=== PATIENT | female | born 1965 | race Caucasian/White ===

== ENCOUNTER 2019-08-25 19:13 | Inpatient (IN) | payer OTHER ==
[~2019-08-25] VITALS: Ht 160 cm; Wt 62.6 kg
[2019-08-25 19:22] VITALS: Ht 160 cm; Wt 62.6 kg
--- NOTE | 2019-08-25 19:30 | NUR ---
PT PRESENTS TO ED WITH C/C GENERALIZED CHEST PAIN WITH ASSOCIATED SOB AND SHARP UPPER BACK PAIN X2 DAYS. PT IS AAOX4. RR TACHYPNIC AT 25 RPM. PT APPEARS UNCOMFORTABLE AND IS DIAPHORETIC, SHIRT SOAKED IN SWEAT. AT BEDSIDE TO TRANSLATE. PER PT IS A DIALYSIS PATIENT AND GOES M/W/F WITH PAST MEDICAL HX OF DIABETES AND "RENAL" UNABLE TO NAME. PAIN DEVELOLPED 2 DAYS AGO AND WORSENED TODAY. PT IS UNABLE TO NAME MEDICATIONS TAKEN AT HOME. PT CONNECTED TO MONITOR. DR REGALADO AT BEDSIDE FOR MSE.
--- NOTE | 2019-08-25 19:31 | NUR ---
EKG COMPLETE AT BEDSIDE.
--- NOTE | 2019-08-25 19:33 | NUR ---
PT ESCORTED TO RESTROOM. STS "I HAVE TO GO DIARREAH NOW." STEADY GAIT TO RESTROOM.
--- NOTE | 2019-08-25 19:41 | NUR ---
DR REGALADO AWARE OF SEPSIS CRITERIA BEING MET.
[2019-08-25 19:47] LABS: BASOPHIL % 0.6 % (0-2)
[2019-08-25 19:49] LABS: PLATELET COUNT 478 x10^3mcL (130-400); RED CELL DISTRIBUTION WIDTH 15.5 % (11.5-14.5)
--- NOTE | 2019-08-25 19:58 | NUR ---
PT O2 SAT 100%. PLACED ON ROOM AIR AT THIS TIME. 100% O2 SAT MAINTAINED.
[2019-08-25 20:23] LABS: ALBUMIN 3.6 g/dL (3.4-5.0); BILIRUBIN TOTAL 1.4 mg/dL (0.20-1.00); CALCIUM 9.1 mg/dL (8.5-10.1); CARBON DIOXIDE 19.3 mmol/L (21-32); POTASSIUM SERUM 4.7 mmol/L (3.5-5.1)
[2019-08-25 20:28] LABS: CREATININE SERUM 9.8 mg/dL (0.6-1.0); TOTAL PROTEIN, SERUM 8.9 g/dL (6.4-8.2)
--- NOTE | 2019-08-25 20:30 | NUR ---
LAB AT BEDSIDE.
--- NOTE | 2019-08-25 20:30 | NUR ---
PT ASKED TO USE THE RESTROOM AT THIS TIME. C/O DIARREAH. DR REGALADO NOTIFIED. SAMPLE TO BE COLLECTED AND SENT TO LAB.
--- NOTE | 2019-08-25 20:32 | NUR ---
PT HAVING CRAMP TO RLE, GIVEN BEDSIDE COMMODE FOR SAFETY REASONS.
--- NOTE | 2019-08-25 20:48 | NUR ---
PT TAKEN TO CT.
--- NOTE | 2019-08-25 21:14 | NUR ---
DR REGALADO AWARE OF SEVERE SEPSIS CRITERIA BEING MET.
--- NOTE | 2019-08-25 21:30 | NUR ---
STOOL COLLECTED AND SENT FOR C&S.
--- NOTE | 2019-08-25 22:07 | NUR ---
AV SHUNT TO RFA, LIMB RESTRICTION BAND PLACED.
--- NOTE | 2019-08-26 00:15 | NUR ---
PT RESTING EASY IN POSITION OF COMFORT. NAD NOTED.
--- NOTE | 2019-08-26 02:04 | NUR ---
PT RESTING PEACEFULLY WITH BOTH EYES CLOSED, AROUSABLE. NAD NOTED.
--- NOTE | 2019-08-26 02:24 | NUR ---
PT UNABLE TO PROVIDE ADDITIONAL STOOL SAMPLE TO SEND FOR CDIFF AT THIS TIME. DR RASHI MCCOLLUM.
--- NOTE | 2019-08-26 03:13 | NUR ---
REPORT CALLED AND GIVEN TO LUCITA MAKI.
--- NOTE | 2019-08-26 03:30 | NUR ---
PATIENT ARRIVED FROM ED ACCOMPANIED BY ED STAFF, NURSE, AND . BELONGINGS AT BEDSIDE. NO DISTRESS NOTED. BREATHING EVEN AND UNLABORED ON ROOM AIR. NO SOB OR RESP DISTRESS NOTED. A/OX4. ABLE TO MAKE NEEDS KNOWN. CLEAR AND APPROPIATE SPEECH. DENIES VICK OR DIZZINESS. DENIES CHEST PAIN/PRESSURE. NO C/O PAIN. TELE #29 NSR AT 89BPM. IV TO THE LFA, 20G. SALINE LOCK. PATENT AND INTACT. NO REDNESS OR SWELLING NOTED. AV SHUNT TO REUBEN. HD ON M,W,F. PATIENT REPORTS SHE IS ANURIC. REPORTS DIARRHEA. ORIENTED PATIENT TO ROOM AND CALL LIGHT SYSTEM. COMFORT AND SAFETY MEASURES IN PLACE. BED IS LOCKED AND IN THE LOWEST POSITION. SIDE RAILS UP X2. CALL LIGHT IS WITHIN REACH. WILL CONTINUE TO MONITOR.
[2019-08-26 04:08] VITALS: BP 111/53
--- NOTE | 2019-08-26 05:32 | NUR ---
FIRST DOSE OF CIPRO GIVEN NOW PER DR DELEON. THIS WILL COVER 0900 DOSE. WILL ENDORSE TO DAY SHIFT RN TO NOT GIVE [address] DELEON.
--- NOTE | 2019-08-26 06:09 | NUR ---
RESTED SINCE ARRIVAL FROM ED. NO ACUTE CHANGES NOTED. BREATHING EVEN AND UNLABORED ON ROOM AIR. NO SOB OR DISTRESS NOTED. IV INFUSING WELL. PATENT AND INTACT. NO REDNESS OR SWELLING NOTED. DENIES CHEST PAIN/PRESSURE. NO C/O PAIN. NO DIARRHEA NOTED AT THIS TIME. SAFETY MEASURES IN PLACE. NPO. EDUCATED PATIENT ON NPO STAUS. VERBALIZED UNDERSTANDING. COMFORT AND SAFETY MEASURES IN PLACE. CALL LIGHT IS WITHIN REACH. WILL ENDORSE CARE TO DAY SHIFT RN.
[2019-08-26 07:03] LABS: BASOPHIL % 0.2 % (0-2)
--- NOTE | 2019-08-26 07:30 | NUR ---
RECEIVED PT FROM TOY ELECTRIC TRAIN REPAIRER RN. Willard/OX4, SPE
--- NOTE | 2019-08-26 07:30 | NUR ---
RECEIVED PT FROM BANQUET ATTENDANT LUCITA. Willard/VERA. TELE#29. PT DENIES ANY CHEST PAIN/PRESSURE AT THIS TIME. RESPIRATIONS EQUAL AND UNLABORED ON RA. DENIES SOB. PT DENIES ANY N/V. PT DENIES ANY ABDOMINAL PAIN OR TE
[2019-08-26 07:48] LABS: PLATELET COUNT 423 x10^3mcL (130-400); RED CELL DISTRIBUTION WIDTH 15.1 % (11.5-14.5)
[2019-08-26 08:15] LABS: CALCIUM 8.5 mg/dL (8.5-10.1); CARBON DIOXIDE 15.4 mmol/L (21-32); MAGNESIUM 2.7 mg/dL (1.8-2.4); PHOSPHOROUS 6.8 mg/dL (2.5-4.9); POTASSIUM SERUM 5.5 mmol/L (3.5-5.1)
[2019-08-26 08:17] LABS: CREATININE SERUM 10.1 mg/dL (0.6-1.0)
[2019-08-26] MEDS ORDERED: LABETALOL HCL300 MG PO (09:01)
[2019-08-26] MEDS ORDERED: D-20001 TAB PO (09:02)
[2019-08-26] MEDS ORDERED: REN800 PO (09:03)
[2019-08-26] MEDS ORDERED: AMLODIPINE BESYL5 M2 PO (09:03)
[2019-08-26 09:04] VITALS: BP 103/55
--- NOTE | 2019-08-26 09:06 | NUR ---
PT SITTING UP IN BED. NO ACUTE RESP DISTRESS NOTED ON RA. PT DENIES ANY CHEST PAIN/PRESSURE AT THIS TIME. PT DENIES ANY N/V. GIVEN PO MEDS. TOLERATED WELL. OBTAINED PT HOME MEDICATIONS, MED REC. UPDATED, WILL UPDATE DR. GONZALEZ. WILL CONTINUE TO MONITOR. CALL LIGHT IN REACH. BED IN LOWEST POSITION.
[2019-08-26 09:28] LABS: CHOLESTEROL/HDL RATIO 3.4
--- NOTE | 2019-08-26 11:20 | NUR ---
PT SITTING UP IN BED. NO ACUTE RESP DISTRESS NOTED ON RA. PT DENIES ANY CHEST PAIN/PRESSURE. PT DENIES ANY ABDOMINAL PAIN AT THIS TIME. BLOOD SUGAR CHECKED WAS 110. NO COVERAGE NEEDED. PT ASKING IF SHE CAN AT LEAST DRINK WATER. PAGED DR. GONZALEZ, AWAITING CALL BACK. WILL CONTINUE TO MONITOR. CALL LIGHT IN REACH. BED IN LOWEST POSITION.
--- NOTE | 2019-08-26 12:09 | NUR ---
PT ASKING TO DRINK AT WATER OR HAVE ICE CHIPS. SPOKE WITH DR. GONZALEZ PER DR. GONZALEZ PT OKAY TO HAVE ICE CHIPS AND SOME WATER.
--- NOTE | 2019-08-26 12:33 | NUR ---
SPOKE WITH FARRAH IN ULTRASOUND. WILL TAKE PT DOWN SOON FOR US ABDOMEN
[2019-08-26 13:00] VITALS: BP 102/58
[2019-08-26 16:46] VITALS: BP 106/56
--- NOTE | 2019-08-26 17:27 | NUR ---
PT SITTING UP IN BED. NO ACUTE RESP DISTRESS NOTED ON RA. ENGRAVER SEALS AT BEDSIDE. PT DENIES ANY PAIN AT THIS TIME. PT UPSET. PT ANGRY AND WANTS IV TO RW TO BE REMOVED. PT STATES "I DONT NEED AN IV AND I WANT THIS ONE OUT." PAGED DR. GONZALEZ. AWAITING CALL BACK. WILL CONTINUE TO MONITOR. CALL LIGHT IN REACH. BED IN LOWEST POSITION.
--- NOTE | 2019-08-26 18:15 | NUR ---
PT SITTING UP IN BED. PT UPSET COMPLAINING IV TO LW IS PAINFUL. PT STATES "I DONT NEED AN IV. NOTHING IS WRONG WITH ME. I AM FINE" IV REMOVED FROM LW. NO REDNESS OR SWELLING NOTED. PT SIGNED REFUSAL FORM FOR IV ACCESS. PT ALSO UPSET. SAYING "THEYRE TAKING TOO MUCH FLUIDS OUT ON MY DIALYSIS. NO ONE EVER TAKES THIS MUCH." CALLED CALL PHONE SPOKE WITH DR. VINCENT. PER DR. MELISA GONZALEZ IS WITH A PT JUST PAGE HIM AND HE WILL CALL YOU BACK. PAGED DR. GONZALEZ AWAITING CALL BACK. PT ALSO C/O ABOUT WANTING TO EAT. WILL ENDORSE TO PORCELAIN TECHNICIAN RN. CALL LIGHT IN REACH. BED IN LOWEST POSITION.
--- NOTE | 2019-08-26 18:43 | NUR ---
SPOKE WITH DR. GONZALEZ MADE AWARE PT IS UPSET REGARDING IV, DIALYSIS AND BEING NPO. PER DR. GONZALEZ WILL SPEAK WITH PT PRIOR TO LEAVING.
--- NOTE | 2019-08-26 19:25 | NUR ---
DR GONZALEZ AT BEDSIDE AND LUZ MARIA PT.
--- NOTE | 2019-08-26 19:42 | NUR ---
PT SEEN, RESTING IN BED, ALERT AND ORIENTED, DENIES HEADACHE OR DIZZINESS, BREATHING EVEN AND UNLABORED, LUNG SOUNDS CLEAR, ON ROOM AIR WITH NO RESP DISTRESS NOTED, ON TELE#29 NSR, DENIES CHEST PAIN, NO IV ACCESS, REFUSAL FORM SIGNED, AV SHUNT TO REUBEN, PT IS HAVING HD AT THIS TIME, ABD SOFT WITH ACTIVE BS, NO BM AT THIS TIME, NO N&V NOTED, ANURIC, NO DISTRESS NOTED, WILL KEEP TO MONITOR.
--- NOTE | 2019-08-26 20:08 | NUR ---
HD COMPLETED, VSS, TOTAL OUTPUT 2 LITERS.
[2019-08-26 20:52] VITALS: BP 117/59
--- NOTE | 2019-08-27 06:25 | NUR ---
PT ASLEEP BUT EASILY AROUSABLE, SLEPT MOST OF NIGHT, NO BM OR C/O OF ABD PAIN SINCE BEGINNING OF SHIFT, NO C/O OF N&V, MORNING BLOOD SUGAR: 123 MG/DL WITH NO RISS, NO DISTRESS NOTED, WILL KEEP TO MONITOR.
[2019-08-27 06:42] VITALS: BP 97/55
[2019-08-27 06:42] LABS: BASOPHIL % 0.3 % (0-2); PLATELET COUNT 383 x10^3mcL (130-400)
[2019-08-27 06:48] LABS: RED CELL DISTRIBUTION WIDTH 15.2 % (11.5-14.5)
[2019-08-27 07:06] LABS: CALCIUM 8.2 mg/dL (8.5-10.1); CARBON DIOXIDE 24.4 mmol/L (21-32); MAGNESIUM 1.9 mg/dL (1.8-2.4); PHOSPHOROUS 5.1 mg/dL (2.5-4.9); POTASSIUM SERUM 3.8 mmol/L (3.5-5.1)
[2019-08-27 07:15] LABS: CREATININE SERUM 6.1 mg/dL (0.6-1.0)
--- NOTE | 2019-08-27 07:51 | NUR ---
RECEIVED PATIENT FROM LUCITA TAN. PATIENT IN BED AT THIS TIME W NO COMPLAINTS OF PAIN, N/V/D, OR DIZZINESS. EXPLAINED TO PATIENT ABOUT PLAN FOR TODAY, PATIENT GESTURES UNDERSTANDING, DOES NOT SPEAK YEMENI. WILL AWAIT FOR CARE TEAM TO SPEAK WITH PATIENT TODAY. CALL LIGHT IN REACH AT THIS TIME.
[2019-08-27 09:48] VITALS: BP 107/51
--- NOTE | 2019-08-27 11:24 | NUR ---
SPOKE WITH DR GONZALEZ IN [facility] ABOUT PLAN FOR PATIENT. STATES SHE LIKELY TO BE DISCHARGED TODAY AFTER CLEARED FROM CARDIOLOGY W DR MONTANO AND BE SENT HOME W HOME ANTIBIOTICS. DR GONZALEZ WITH CARE TEAM TO STILL MAKE ROUNDS AND SPEAK W PATIENT.
--- NOTE | 2019-08-27 12:12 | NUR ---
1. Recommend Renal, [facility] diet. Paged Dr. Layne, waiting for call back.
--- NOTE | 2019-08-27 12:12 | NUR ---
Initial Nutrition Assessment: 226T/A NANETTE JEAN IA HR Dx: CP, diarrhea, ESRD PMHx: DM, ESRD on HD MWF (AV shunt rt FA) PSHx: Labs: BG 126H, BUN 31H, CREAT 6.1H, P 5.1H, TG 268H, A1C 7.5H Meds: Aspirin, D 50%, flagyl, Humulin, nitrostat, renagel, vitamin D, zofran Diet: Renal PO intake since admission: none documented so far Ht: 160.02 cm (63") Wt: 62.5 kg (137#) BMI: 24.4 kg/m2 Bed scale: 62.5 kg IBW: 115# (52 kg) %IBW: 119 UBW: 137-138# Age: 53/F Food Allergies: NKFA Skin: intact Jono: 20 Edema: none GI: Last BM: 08/26 Pt is a 53 years old female with PMH of DM, ESRD on HD MWF (AV shunt rt FA) was presented to the ED with c/o chest pain, shortness of breath and upper back pain RD Note (08/27): Patient was alert and oriented and said that she ate all of her breakfast this morning and has good appetite. Per progress note (08/26), Patient was admitted for chest, shortness of breath and diarrhea. HEART score of 4, Dr Monae consulted. Due for dialysis today and Dr. Morales group consulted. Problem with: N/V/D/C: none Problems with: Chewing: Swallowing: none Current appetite: good Recent wt change: none %wt change: n/a Vitamin/Supplement use: vitamin D Special diet at home: Regular Physical activity: walking Nutrition education given: [facility] handout on "CKD stage 5: Tips for people on dialysis" was provided and explained. Food-drug interactions: none Education given: n/a Estimated Nutritional Needs Based on current body weight (62.5 kg) Energy: 1436-1998 kcal/day (30-35 kcal/kg for HD) Protein: 75-94 g/day (1.2-1.5 g/kg for HD) Fluid: 4347-3030 mL/day (1 mL/kcal) Nutrition Diagnosis: 1. Increased nutrient needs related to increased metabolic demands as evidenced by patient on HD. Intervention 1. Recommend Renal, [facility] diet. Paged Dr. Layne, waiting for call back. Monitor/Evaluate Goal: PO intake at least 75% of estimated needs Monitor: PO intake, Labs, GI function F/U in 3-5 days as moderate risk 08/30-
[2019-08-27 12:29] VITALS: BP 134/68
[2019-08-27 16:24] VITALS: BP 139/70
[2019-08-27] MEDS ORDERED: CIP500 PO (16:54)
[2019-08-27] MEDS ORDERED: FLA500 PO (16:54)
--- NOTE | 2019-08-27 17:46 | NUR ---
DR MONTANO IN TO EVALUATE PATIENT. REPORTS NO FURTHER CARDIAC WORK UP AT THIS TIME. NOTIFIED DR GONZALEZ AND MADE AWARE. DISCHARGE ORDERS IN PLACE. DISCHARGE PACKET AND INSTRUCTIONS EXPLAINED TO PATIENT AND . MADE AWARE TO FU W PCP, SURGEON, AND FOLLOW COURSE OF HOME ANTIBIOTICS. PATIENT AND VERBALIZE UNDERSTANDING. PRESCRIPTIONS SENT ELECTRONICALLY TO PREFERRED PHARMACY. TELEMETRY RETURNED TO [facility]. PATIENT AND ESCORTED DOWNSTAIRS VIA WHEELCHAIR ESCORTED KAYLEEN SANTANA. SIGNATURES OBTAINED.
== END 2019-08-27 17:46 | disposition home or self-care (01) | DRG 720 ==
LOC: ED 19:13 → DU 08-26 02:38
PROVIDERS: Emergency Medicine; ADMIT Family Medicine
PROC: 5A1D70Z Performance of Urinary Filtration, Intermittent, Less than 6 Hours Per Day (ICD-10-PCS; principal; 2019-08-26)
DX: A41.9 Sepsis, unspecified organism (principal); I13.2 Hypertensive heart and chronic kidney disease with heart failure and with stage 5 chronic kidney disease, or end stage renal disease; E11.22 Type 2 diabetes mellitus with diabetic chronic kidney disease; E11.65 Type 2 diabetes mellitus with hyperglycemia; K56.7 Ileus, unspecified; E83.39 Other disorders of phosphorus metabolism; E87.8 Other disorders of electrolyte and fluid balance, not elsewhere classified; I50.32 Chronic diastolic (congestive) heart failure; M94.0 Chondrocostal junction syndrome [Tietze]; D64.9 Anemia, unspecified; E78.1 Pure hyperglyceridemia; E87.5 Hyperkalemia; E83.41 Hypermagnesemia; E87.1 Hypo-osmolality and hyponatremia; N18.6 End stage renal disease; E80.6 Other disorders of bilirubin metabolism; K52.9 Noninfective gastroenteritis and colitis, unspecified; Z99.2 Dependence on renal dialysis; Z68.22 Body mass index [BMI] 22.0-22.9, adult; Z79.84 Long term (current) use of oral hypoglycemic drugs; Z79.899 Other long term (current) drug therapy
CPT/HCPCS: 82962; 83880; 87046; 87046-59; G0378; J0744; J3490; J7030; J7040; P9047; Q0092